=== PATIENT | female | born 1985 | race Caucasian/White ===

== ENCOUNTER 2024-12-29 09:40 | Outpatient (CLI) | payer OTHER, SELFPAY ==
--- NOTE | ~2024-12-29 | MR_ITS ---
MRI of the brain Clinical History: Vertigo Technique: Axial and sagittal T1-weighted images were acquired. These were followed by axial T2-weigh kip, diffusion weighted, gradient, and FLAIR images. Findings: No abnormal signal seen in the brain parenchyma. No acute infarct, intracranial hemorrhage, or mass lesion. Ventricles and subarachnoid spaces are unremarkable. Orbits are unremarkable. Paranasal sinuses and m astoid air cells are clear. Major intracranial flow voids are intact. Sagittal midline structures are intact. IMPRESSION: Normal exam. Reviewed, dictated and finalized at location M. IMPRESSION: Normal exam.
== END 2024-12-29 09:41 | disposition home or self-care (01) ==
LOC: MICIMG 09:41
PROVIDERS: PCP Family Medicine; Visit Provider Family Medicine
DX: R42 Dizziness and giddiness (principal)
CPT/HCPCS: 70551